=== PATIENT | male | born 1985 | race African-American/Black ===

== ENCOUNTER 2022-06-04 14:37 | Emergency (ER) | payer SELFPAY ==
[2022-06-04] MEDS ORDERED: Lidocaine 1% w/Epinephrine 1:200K 30 ML VIAL ONE (15:33)
== END 2022-06-04 18:34 | disposition home or self-care (01) ==
LOC: CSHERS 14:37
DX: L72.3 Sebaceous cyst (principal)
CPT/HCPCS: 10060